=== PATIENT | female | born 1950 | race African-American/Black ===

== ENCOUNTER 2018-01-05 16:00 | Emergency (ER) | payer OTHER ==
[~2018-01-05] VITALS: Ht 170.2 cm; Wt 50.0 kg
[~2018-01-05 16:00] MED LIST: CALCIUM CHLORIDE 1GM/10ML SYR IV ONE; DEXTROSE 50% WATER 50ML SYRINGE IV ONE; EPINEPHRINE 0.1MG/ML (1:10,000) 10ML SYR ONE; ETOMIDATE 2MG/ML 10ML VIAL IV ONE; SODIUM BICARBONATE 7.5% 0.9 MEQ/ML 50ML SYR IV ONE; SUCCINYLCHOLINE CHLORIDE 200MG/10ML VIAL IV ONE
[2018-01-05] MEDS ORDERED: ACETAMINOPHEN 650MG SUPP PR STA (16:25)
[2018-01-05] MEDS ORDERED: SODIUM CHLORIDE 0.9% 1000ML BAG (SEPSIS BOLUS) IV ONE (16:30)
[2018-01-05] MEDS ORDERED: PIPERACILLIN/TAZ 3.375G PREMIX 50 ML IV ONE (16:30)
[2018-01-05] MEDS ORDERED: VANCOMYCIN 1 G PREMIX 200 ML IV ONE (16:30)
[2018-01-05 16:59] LABS: BG BASE EXCESS -6.4 mmol/L (-2.0-2.0); BG CARBOXYHEMOGLOBIN 0.1 % (0.5-1.5); BG DEOXYHEMOGLOBIN 4.3 % (0.0-5.0); BG FRACTION INSPIRED OXYGEN 100; BG HCO3 ACT 15.6 mmol/L (22.0-26.0); BG METHEMOGLOBIN 0.1 % (0.0-1.5); BG OXYGEN SATURATION 95.7 % (92.0-98.5); BG OXYHEMOGLOBIN 95.5 % (94.0-97.0); BG PCO2 20.4 mmHg (35.0-45.0); BG PH 7.501 (7.350-7.450); BG PO2 83.8 mmHg (75.0-100.0); BG SAMPLE SITE LEFT FEMORAL; BG TOTAL HEMOGLOBIN 8.3 g/dL (12.0-18.0); BG VENT MODE MASK - NRB
[2018-01-05 17:21] LABS: CHLORIDE 112 mEq/L (98-107)
[2018-01-05 17:22] LABS: HEMOGLOBIN. 7.7 g/dL (12.0-16.0); INR 1.7; MEAN CORPUSCULAR HEMOGLOBIN 32.7 pg (28.0-32.0); MEAN CORPUSCULAR VOLUME 97.8 fL (81.0-99.0); MEAN PLATELET VOLUME 7.6 fl (7.4-10.4); PLATELET 241 x1000/uL (130-400); RED BLOOD CELL COUNT 2.35 mill/uL (4.2-5.4); RED CELL DISTRIBUTION WIDTH 17.3 % (11.6-14.6)
[2018-01-05 17:26] LABS: ETHANOL BLOOD < 10 mg/dL
[2018-01-05 17:53] LABS: PLATELET ESTIMATE NORMAL
[2018-01-05 18:02] LABS: CLARITY URINE TURBID (CLEAR); KETONES URINE 1+ (NEGATIVE); LEUKOCYTE ESTERASE URINE 2+ (NEGATIVE); NITRITE URINE POSITIVE (NEGATIVE); OCCULT BLOOD URINE NEGATIVE (NEGATIVE); PROTEIN URINE 1+ (NEGATIVE); SPECIFIC GRAVITY URINE 1.022 (1.005-1.030)
[2018-01-05 18:03] LABS: COLOR URINE DARK YELLOW (YELLOW)
[2018-01-05 18:10] LABS: *AMPHETAMINES SCREEN URINE NEGATIVE (NEGATIVE); *BARBITURATES SCREEN URINE NEGATIVE (NEGATIVE); *BENZODIAZEPINES SCREEN URINE NEGATIVE (NEGATIVE); *COCAINE SCREEN URINE NEGATIVE (NEGATIVE); PHENCYCLIDINE URINE SCREEN NEGATIVE (NEGATIVE)
[2018-01-05 18:11] LABS: CANNABINOID URINE SCREEN PRESUMTIVE POSITIVE (NEGATIVE); METHADONE URINE SCREEN NEGATIVE (NEGATIVE); OPIATES URINE SCREEN NEGATIVE (NEGATIVE)
[2018-01-05] MEDS ORDERED: SODIUM CHLORIDE 0.9% 1,000 ML IV ONE (19:14)
[2018-01-05] MEDS ORDERED: ETOMIDATE 2MG/ML 10ML VIAL IV ONE (19:15)
[2018-01-05] MEDS ORDERED: MIDAZOLAM HCL 50 MG in DEXTROSE 5% WATER 40 ML IV ONE (19:15)
[2018-01-05] MEDS ORDERED: SUCCINYLCHOLINE CHLORIDE 200MG/10ML VIAL IV ONE (19:15)
[2018-01-05] MEDS ORDERED: NOREPINEPHRINE 4 MG in DEXT 5% WATER 250 ML IV STA (19:55)
[2018-01-05] MEDS ORDERED: NOREPINEPHRINE 4 MG in DEXT 5% WATER 246 ML IV NR ×3 (20:00→22:45)
[2018-01-05] MEDS ORDERED: DEXT 5%/0.45% NACL 1000ML 1,000 ML IV SCH (20:14)
[2018-01-05] MEDS ORDERED: IPRATROPIUM/ALBUTEROL 0.5-3(2.5)MG/3ML NEB INH PRN (20:15)
[2018-01-05] MEDS ORDERED: MAGNESIUM/ALUMINUM HYDROXIDE/SIMETHICONE 30ML UDC PO PRN (20:15)
[2018-01-05] MEDS ORDERED: ONDANSETRON HCL 4MG/2ML VIAL IV PRN (20:15)
[2018-01-05] MEDS ORDERED: ENOXAPARIN 40MG/0.4ML SYR SUBCUT SCH (20:15)
[2018-01-05] MEDS ORDERED: FILGRASTIM 300 MCG/ML VIAL SUBCUT SCH (20:15)
[2018-01-05] MEDS ORDERED: ATROPINE SULFATE 1MG/10ML SYR IV ONE (20:15)
[2018-01-05] MEDS ORDERED: DIPHENHYDRAMINE 50MG/ML VIAL IV PRN (20:15)
[2018-01-05] MEDS ORDERED: PIPERACILLIN/TAZ 3.375G PREMIX 50 ML IV SCH (20:15)
[2018-01-05] MEDS ORDERED: LORAZEPAM 2MG/ML CPJ IV PRN (20:15)
[2018-01-05] MEDS ORDERED: ACETAMINOPHEN 325MG TABLET PO PRN (20:15)
[2018-01-05] MEDS ORDERED: SODIUM BICARBONATE 8.4% 1 MEQ/ML 50ML SYR IV ONE ×2 (20:15→21:15)
[2018-01-05] MEDS ORDERED: CLONIDINE 0.1MG TABLET PO PRN (20:15)
[2018-01-05] MEDS ORDERED: DOCUSATE SODIUM 100MG CAPSULE PO PRN (20:15)
[2018-01-05] MEDS ORDERED: NA PHOS,M-B/NA PHOS,DI-BA ENEMA 118ML PR PRN (20:15)
[2018-01-05] MEDS ORDERED: PROPOFOL 10MG/ML 100ML 100 ML IV SCH (20:30)
[2018-01-05 20:59] LABS: BG BASE EXCESS -11.9 mmol/L (-2.0-2.0); BG CARBOXYHEMOGLOBIN 0.4 % (0.5-1.5); BG DEOXYHEMOGLOBIN 1.2 % (0.0-5.0); BG FRACTION INSPIRED OXYGEN 100; BG HCO3 ACT 11.8 mmol/L (22.0-26.0); BG METHEMOGLOBIN 0.3 % (0.0-1.5); BG OXYGEN SATURATION 98.8 % (92.0-98.5); BG OXYHEMOGLOBIN 98.1 % (94.0-97.0); BG PCO2 19.5 mmHg (35.0-45.0); BG PH 7.401 (7.350-7.450); BG PO2 213.1 mmHg (75.0-100.0); BG SAMPLE SITE LEFT FEMORAL; BG TIDAL VOLUME(mL) 500 mL; BG VENT MODE VENT - A/C; BG VENT RATE 14 set
[2018-01-05] MEDS ORDERED: VASOPRESSIN 10 UNIT in SODIUM CHLORIDE 0.9% 99.5 ML IV PRN ×2 (21:00→21:15)
[2018-01-05] MEDS ORDERED: VASOPRESSIN 10 UNIT in SODIUM CHLORIDE 0.9% 99.5 ML IV STA (21:02)
[2018-01-05] MEDS: IPRATROPIUM/ALBUTEROL 0.5-3(2.5)MG/3ML NEB HHN SCH (21:09)
[2018-01-06] MEDS: IPRATROPIUM/ALBUTEROL 0.5-3(2.5)MG/3ML NEB HHN SCH (00:05)
[2018-01-06] MEDS ORDERED: ALBUMIN HUMAN 25GM/100ML (25%) IV SCH (00:19)
[2018-01-06] MEDS ORDERED: PHENYLEPHRINE 40 MG in DEXT 5% WATER 246 ML IV STA (02:03)
[2018-01-06] MEDS ORDERED: PHENYLEPHRINE 40 MG in DEXT 5% WATER 246 ML IV SCH (02:15)
[2018-01-06 03:05] VITALS: BP 90/55
[2018-01-06] MEDS ORDERED: PANTOPRAZOLE SODIUM 40 MG/VIAL IV SCH (09:00)
[2018-01-06] MEDS ORDERED: SODIUM BICARBONATE 7.5% 0.9 MEQ/ML 50ML SYR IV ONE (13:48)
[2018-01-06] MEDS ORDERED: DEXTROSE 50% WATER 50ML SYRINGE IV ONE (13:48)
[2018-01-06] MEDS ORDERED: ATROPINE SULFATE 1MG/10ML SYR ONE (13:48)
[2018-01-06] MEDS ORDERED: CALCIUM CHLORIDE 1GM/10ML SYR IV ONE (13:48)
[2018-01-06] MEDS ORDERED: EPINEPHRINE 0.1MG/ML (1:10,000) 10ML SYR ONE (13:48)
== END 2018-01-06 06:25 | disposition expired ==
LOC: ER 16:24 → EDBEDREQ 16:34 → EDBEDREQTM 19:02 → EDBEDREQSVC 19:02 → EDBEDREQ 19:02 → SUPCPDRO 20:10 → CANBEDREQ 01-06 05:53 → ER 01-06 06:25
DX: J18.9 Pneumonia, unspecified organism (principal); N39.0 Urinary tract infection, site not specified; I46.9 Cardiac arrest, cause unspecified; J96.00 Acute respiratory failure, unspecified whether with hypoxia or hypercapnia; A40.3 Sepsis due to Streptococcus pneumoniae; R65.21 Severe sepsis with septic shock; D70.9 Neutropenia, unspecified; D64.9 Anemia, unspecified; E43 Unspecified severe protein-calorie malnutrition; E83.51 Hypocalcemia; I82.4Z3 Acute embolism and thrombosis of unspecified deep veins of distal lower extremity, bilateral; I82.433 Acute embolism and thrombosis of popliteal vein, bilateral; N28.9 Disorder of kidney and ureter, unspecified; I10 Essential (primary) hypertension; Z68.1 Body mass index [BMI] 19.9 or less, adult
CPT/HCPCS: 31500; 36415; 36556; 36600; 51702; 71045; 80053; 80305; 81003; 82375; 82805; 82962; 83605; 85025; 85610; 87040; 87077; 87086; 87186; 92950; 93005; 93970; 94640; 96365; 96366; 96367; 96368; 96375; 99291; 99292; G0482; J0330; J0461; J2250; J2370; J2543; J3370; J3490; J7030; P9047; 99285; J2704; J7050; J7060